=== PATIENT | male | born 1985 | race Caucasian/White ===

== ENCOUNTER → 2018-08-18 09:08 | Emergency (ER) | payer BC, OTHER ==
[~2018-08-18 09:08] MED LIST: Ibuprofen TAB* 600 MG PO ONE; Lidocaine 1%* 5 ML VIAL INJ ONE; Tetan/Diph/Pertus SYR(Tdap)* 0.5 ML SYR(BOOSTRIX) use SYR IM ONE
[2018-08-18 09:41] VITALS: BP 151/86
--- NOTE | 2018-08-18 11:01 | UC ---
Laceration HPI - HPI Summary HPI Summary: Patient presents to urgent care with lacerations to his right hand. Patient works in a machine shop. Patient he grabbed a piece of metal sustaining cuts to his right middle and ring finger. Patient states applied pressure to help with bleeding. unknown last tetanus. No analgesia taken Left HD. No paresthesia. No weakness Medications reviewed this visit - History Of Current Complaint Chief Complaint: UCTrauma Stated Complaint: RIGHT HAND LACERATION - W/C Time Seen by Provider: 08/18/18 10:16 Hx Obtained From: Patient Pain Intensity: 2 - Allergies/Home Medications Allergies/Adverse Reactions: Allergies Allergy/AdvReac Type Severity Reaction Status Date / Time seasonal Allergy Congestion Uncoded 08/18/18 09:41 PMH/Surg Hx/FS Hx/Imm Hx Previously Healthy: Yes - Surgical History Surgical History: None - Family History Known Family History: Positive: Other - non contributory - Social History Occupation: Employed Full-time Lives: Alone Alcohol Use: Occasionally Substance Use Type: Marijuana Substance Use Comment - Amount & Last Used: 12/24/14 Smoking Status (MU): Light Every Day Tobacco Smoker - Immunization History Most Recent Tetanus Shot: unknown Review of Systems Constitutional: Negative Skin: Other - laceration All Other Systems Reviewed And Are Negative: Yes Physical Exam - Summary Physical Exam Summary: Vital Signs Reviewed: Yes A+Ox3, no distress Eyes: Conjunctiva Clear ENT: Hearing grossly normal neck: supple Respiratory: Positive: No respiratory distress, No accessory muscle use Cardiovascular: skin color reflect adequate perfusion CBT < 2 sec all digits Musculoskeletal Exam: MITCHELL x 4 without difficulty + flex/ext PIP, DIP, MCP against resistance right 4th, middle finger Neurological: Positive: Alert, ambulatory without difficulty + gross sensation throughout injured fingers Psychological: Positive: Normal Response To Family Skin: Positive: no rash, no ecchymosis right middl finger, volar aspect, over PIP - pt with 1.5 cm laceration, linear right ring finger thin, flap laceration Triage Information Reviewed: Yes Vital Signs: Initial Vital Signs Temp 98.3 F 08/18/18 09:37 Pulse 63 08/18/18 09:37 Resp 18 08/18/18 09:37 BP 151/86 08/18/18 09:37 Pulse Ox 100 08/18/18 09:37 Laceration Repair - Laceration Repair 1 Procedure Summary: verbal permission to treat time out completed with RN at bedside pt prepped in usual, sterile fashion copious irrigation with 250ml sterile saline under pressure pt tolerated well reviewed with pt wound care s/s infection wound care Description: Linear - right volar 3rd Laceration Size After Repair: Length (cm) Type Injection: Local Anesthesia Used: 1.0% Lido - 1.5 Cleansing Completed Via Routine Prep: Yes Irrigation With Pressure Irrigation Device: Yes Closure Method: Single Layer - 4 sutures, well approximated Suture Of: Skin Suture Type: Nylon - 4-0 2 Procedure Summary: verbal permission to treat time out completed with RN at bedside pt prepped in usual, sterile fashion copious irrigation with 250ml sterile saline under pressure pt tolerated well reviewed with pt wound care s/s infection Description: Irregular - superficial flap Laceration Size After Repair: Length (cm) - 1 Modified For Repair: No Closure Material: SteriStrips Laceration Course/Dx - Course/Dx Course Of Treatment: Patient presents with 2 lacerations to his right, nondominant finger. Laceration middle digit was closed with 3 with 4 simple interrupted sutures. Patient tolerated well. Patient placed in finger splint for comfort. Second wound was a flap and nonsuturable it was superficial. Covered with Steri-Strips. And bandage. Discussed with patient signs and symptoms of infection. Patient's tetanus was updated. Workmen's Comp. paperwork signed. Patient comfortable in agreement with plan. Return 8- 10 days for suture removal. BP elevated f/u withpcp - Differential Dx - Laceration/Wound Provider Diagnoses: laceration 3rd finger right, skin flap 4th Discharge - Sign-Out/Discharge Documenting (check all that apply): Patient Departure All imaging exams completed and their final reports reviewed: No Studies - Discharge Plan Condition: Stable Disposition: HOME Patient Education Materials: Laceration (ED) Forms: *Work Release Referrals: López Ackerman MD [Medical Doctor] - Guille Machado MD [Primary Care Provider] - Additional Instructions: - your stitches should come out in 8-10 days - you can return here, go to your Doctor, occupational medicine office, or any urgent care center - okay to alternate ibuprofin (advil, motrin) and tylenol every 3hours as needed for pain -Anticipate increased discomfort over the next several hours as the numbing medication wears off -Keep your wound clean and dry - no soaking for 24 hours. Then, okay for wound to get wet - pat dry, don't rub -apply a thin layer of antibiotic ointment (neosporin, polysporin) 2-3 times a day - keep your wound clean - monitor for signs of infection - reddness, red streaking, odor, green drainage - wear splint as much as possible for the next 5 days. - you were given a tetanus vaccination today- your arm may be sore tomorrow- this is normal - Contact your doctor or return here with questions or concerns - Billing Disposition and Condition Condition: STABLE Disposition: Home
== END | disposition home or self-care (01) ==
LOC: UCCORT 09:08
DX: S61.212A Laceration without foreign body of right middle finger without damage to nail, initial encounter (principal); W26.8XXA Contact with other sharp object(s), not elsewhere classified, initial encounter; Y92.9 Unspecified place or not applicable; Y99.0 Civilian activity done for income or pay; F17.210 Nicotine dependence, cigarettes, uncomplicated
CPT/HCPCS: 12001; 90471; 90715; 99202; A9270-GY; G0463

== ENCOUNTER 2018-08-26 12:05 | Emergency (ER) | payer OTHER ==
[2018-08-26 12:23] VITALS: BP 124/78
--- NOTE | 2018-08-26 12:37 | UC ---
HPI Wound/Suture Re-check - HPI Summary HPI Summary: Pt presents for removal of stitches placed in right middle anterior finger on . - History Of Current Complaint Chief Complaint: UCSkin Stated Complaint: STITCHES REMOVAL - W/C Time Seen by Provider: 08/26/18 12:30 Hx Obtained From: Patient Onset/Duration: Sudden Onset Severity: Mild Pain Intensity: 0 - Allergies/Home Medications Allergies/Adverse Reactions: Allergies Allergy/AdvReac Type Severity Reaction Status Date / Time seasonal Allergy Congestion Uncoded 08/26/18 12:17 PMH/Surg Hx/FS Hx/Imm Hx Previously Healthy: Yes - Surgical History Surgical History: None - Family History Known Family History: Positive: Other - non contributory - Social History Occupation: Employed Full-time Lives: With Family Alcohol Use: Occasionally Substance Use Type: Marijuana Substance Use Comment - Amount & Last Used: 12/24/14 Smoking Status (MU): Light Every Day Tobacco Smoker Amount Used/How Often: 1/2 PPD Have You Smoked in the Last Year: Yes - Immunization History Most Recent Tetanus Shot: unknown- had tetanus at last visit on 08/18/18 Review of Systems Constitutional: Negative Skin: Other - sutures intact, no erythema tenderness or discharge. Eyes: Negative ENT: Negative Respiratory: Negative Cardiovascular: Negative Gastrointestinal: Negative Genitourinary: Negative Motor: Negative Neurovascular: Negative Musculoskeletal: Negative Neurological: Negative Psychological: Negative Is Patient Immunocompromised?: No All Other Systems Reviewed And Are Negative: Yes Physical Exam Triage Information Reviewed: Yes Appearance: Well-Appearing Vital Signs: Initial Vital Signs Temp 98.8 F 08/26/18 12:17 Pulse 89 08/26/18 12:17 Resp 18 08/26/18 12:17 BP 124/78 08/26/18 12:17 Pulse Ox 98 08/26/18 12:17 Vital Signs Reviewed: Yes Eye Exam: Normal ENT Exam: Normal Dental Exam: Normal Neck exam: Normal Respiratory: Positive: No respiratory distress Musculoskeletal Exam: Normal Neurological Exam: Normal Psychological Exam: Normal Skin Exam: Other - sutures in tact, no erythema, tenderness or discharge from laceration site Course/Dx - Differential Dx - Laceration/Wound Differential Diagnoses: Suture Removal Provider Diagnoses: 4 sutures removed for right third finger palmar aspect. Discharge - Sign-Out/Discharge Documenting (check all that apply): Patient Departure All imaging exams completed and their final reports reviewed: No Studies - Discharge Plan Condition: Stable Disposition: HOME Patient Education Materials: Stitches Removal (ED) Referrals: Guille Machado MD [Primary Care Provider] - If Needed - Billing Disposition and Condition Condition: STABLE Disposition: Home
== END 2018-08-26 12:42 | disposition home or self-care (01) ==
LOC: UCCORT 12:05
DX: Z48.02 Encounter for removal of sutures (principal); J30.2 Other seasonal allergic rhinitis; F17.210 Nicotine dependence, cigarettes, uncomplicated; F12.90 Cannabis use, unspecified, uncomplicated